=== PATIENT | female | born 1985 | race Hispanic/Latino ===

== ENCOUNTER 2019-03-17 05:52 | Emergency (ER) | payer BC ==
[~2019-03-17] VITALS: Ht 160 cm; Wt 76.7 kg
--- NOTE | 2019-03-17 06:03 | NUR ---
RADIOLOGY CALLED TO CALL OUT ULTRASOUND.
[2019-03-17 07:14] LABS: BASOPHILS # (AUTO) 0.1 (0.0-0.1); BASOPHILS % 0.6 % (0.0-1.0); EOSINOPHILS # (AUTO) 0.5 (0.0-0.4); EOSINOPHILS % 5.4 % (0.0-6.0); HEMATOCRIT 33.5 % (34.2-44.1); HEMOGLOBIN 10.4 g/dL (12.0-16.0); LYMPHOCYTES # (AUTO) 2.6 (1.0-3.2); LYMPHOCYTES % 28.8 % (18.0-39.1); MEAN CORPUSCULAR HEMOGLOBIN 24.6 pg (28-32); MEAN CORPUSCULAR VOLUME 79.4 fL (81-99); MONOCYTES # (AUTO) 0.7 (0.2-0.8); MONOCYTES % 7.5 % (4.4-11.3); NEUTROPHILS # (AUTO) 5.2 (2.1-6.9); NEUTROPHILS % 57.4 % (38.7-80.0); PLATELET COUNT 307 x10e3/uL (140-360); RED BLOOD COUNT 4.22 x10e6/uL (3.6-5.1)
[2019-03-17 07:19] LABS: BILIRUBIN,URINE SMALL (NEGATIVE); CLARITY,URINE TURBID (CLEAR); COLOR,URINE RED (YELLOW); LEUKOCYTE ESTERASE ,URINE TRACE (NEGATIVE); NITRITE,URINE NEGATIVE (NEGATIVE); PROTEIN,URINE DIPSTICK 2+ (NEGATIVE); URINE UROBILINOGEN 0.2 mg/dL (0.2 - 1)
[2019-03-17 07:34] LABS: KETONES,URINE 2+ (NEGATIVE)
[2019-03-17 07:36] LABS: WBC,URINE (MAN) >50 /HPF (0-5)
[2019-03-17 07:37] LABS: BACTERIA,URINE MANY /HPF; EPITHELIAL CELLS,URINE FEW /LPF; RBC,URINE >50 /HPF (0-5)
[2019-03-17 07:53] LABS: ALANINE AMINOTRANSFERASE 26 IU/L (0-55); ALBUMIN 2.9 g/dL (3.5-5.0); ALBUMIN/GLOBULIN RATIO 0.7 (0.8-2.0); ALKALINE PHOSPHATASE 50 IU/L (40-150); ANION GAP 12.4 mmol/L (8-16); BLOOD UREA NITROGEN 6 mg/dL (7-26); BUN/CREATININE RATIO 10 (6-25); CALCIUM 9.4 mg/dL (8.4-10.2); CARBON DIOXIDE 20 mmol/L (22-29); CHLORIDE 107 mmol/L (98-107); CREATININE, SERUM 0.59 mg/dL (0.57-1.11); EST GLOMERULAR FILTRATION RATE > 60 ML/MIN (60-); GLUCOSE 93 mg/dL (74-118); POTASSIUM 3.4 mmol/L (3.5-5.1); SODIUM 136 mmol/L (136-145)
[2019-03-17] MEDS ORDERED: CEFTRIAXONE SOD 1 GM/NS 50 ML 50 ML IV ONE (08:30)
[2019-03-17 08:33] LABS: HCG,QUANTITATIVE 61942.79 mIU/mL (0-10)
--- NOTE | 2019-03-17 08:54 | Diagnostic Imaging Report ---
EXAM: US OB COMPLETE MULTI GESTATION DATE: 03/17/2019 12:00 AM Time stamp on exam: INDICATION: and bleeding. Twijn . COMPARISON: None TECHNIQUE: Multiple transabdominal images of the uterus and fetus were obtained using to-scale, color Doppler and M-mode. FINDINGS: LMP 12/02/2018 A0 Type of Gestation: 20 GA by LMP: 15w 0d EDC: 09/08/2019 TWIN A: Measurements: BPD 3.3 cm 16w 1d HC 11.0 cm 15w 2d AC 9.5 cm 15w 4d FL 2.0 cm 16w 0d Estimated Weight: 133 g, (0 lbs. 5 oz) 86% No evidence of placental previa. There is no funneling of the internal os. size is appropriate for gestational age. Gender: too early Position: Cephalic Placental Location: Fundal Cervical Length: 3.3 cm Amniotic Fluid Index: 19.0 cm Heart Rate: 151 bpm Distance of placental tip to cervical os: Not well visualized TWIN B: Measurements: BPD 3.3 cm 16w 2d HC 11.7 cm 15w 5d AC 9.8 cm 15w 6d FL 1.8 cm 15w 1d Estimated Weight: 129 g, (0 lbs. 5 oz) 79% No evidence of placental previa. There is no funneling of the internal os. size is appropriate for gestational age. Gender: too early Position: Cephalic Placental Location: Fundal Cervical Length: 3.3 cm Amniotic Fluid Index: 19.0 cm Heart Rate: 157 bpm Distance of placental tip to cervical os: Not well visualized IMPRESSION: 1. Twin living intrauterine without abnormality identified. 2. TWIN A: Ultrasound age 15 weeks 5 days with KIM 09/03/2019. 3. TWIN B: Ultrasound age 15 weeks 5 days with KIM 09/03/2019. 4. No bleeding identified. Signed by: Dr. Mendoza Carrasco M.D. on 03/17/2019 8:50 AM
[2019-03-17 09:07] VITALS: BP 116/74
[2019-03-17 12:13] LABS: ANISOCYTOSIS SLIGHT; EOSINOPHILS % (MANUAL) 3 % (0-7); LYMPHOCYTES % (MANUAL) 30 % (19-48); MONOCYTES % (MANUAL) 6 % (3.4-9.0); NEUTROPHILS % (MANUAL) 61 % (40-74)
== END 2019-03-17 09:30 | disposition home or self-care (01) ==
LOC: ER 05:52
DX: O23.41 Unspecified infection of urinary tract in pregnancy, first trimester (principal); O46.91 Antepartum hemorrhage, unspecified, first trimester; Z3A.12 12 weeks gestation of pregnancy
CPT/HCPCS: 36415; 76805; 76810; 80053; 81001; 84702; 85025; 86850; 86900; 99284; J0696